=== PATIENT | male | born 1960 | race Caucasian/White ===

== ENCOUNTER 2018-09-06 20:51 | Emergency (ER) | payer MEDICAID ==
[~2018-09-06] VITALS: Wt 89.5 kg
[2018-09-06] MEDS ORDERED: THIAMINE 100 MG TAB PO ONE (21:20)
[2018-09-06] MEDS ORDERED: ONDANSETRON (ODT) 4 MG TAB ODT ONE (21:20)
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
[2018-09-06] MEDS ORDERED: FAMOTIDINE 20 MG TAB PO ONE (21:30)
[2018-09-07 05:30] VITALS: BP 132/82; PULSE 102; RESP 15
== END 2018-09-07 05:30 | disposition home or self-care (01) ==
LOC: E/R 20:51
DX: F10.929 Alcohol use, unspecified with intoxication, unspecified (principal); R40.2142 Coma scale, eyes open, spontaneous, at arrival to emergency department; R40.2362 Coma scale, best motor response, obeys commands, at arrival to emergency department; R40.4 Transient alteration of awareness
CPT/HCPCS: 71045; 80053; 80307; 81001; 85025; Z7610; 36415; 93005